=== PATIENT | male | born 1955 | race Two or more races ===

== ENCOUNTER 2024-03-01 11:10 | Emergency (ER) | payer OTHER ==
[~2024-03-01] VITALS: Ht 175.3 cm; Wt 62.1 kg
[2024-03-01] MEDS ORDERED: BENICAR20 MG PO (11:25)
[2024-03-01] MEDS ORDERED: ROSUVASTATIN CA10 MG PO (11:25)
[2024-03-01] MEDS ORDERED: FINASTERIDE5 MG PO (11:25)
[2024-03-01] MEDS ORDERED: UROXATRAL10 MG PO (11:26)
[2024-03-01] MEDS ORDERED: TETANUS & DIPHTHERIA TOX,ADULT 0.5 ML VIAL IM ONE (13:30)
[2024-03-01] MEDS ORDERED: TETANUS DIPHTHERIA TOX. ADSOR 5 ML VIAL IM ONE (13:46)
[2024-03-01] MEDS ORDERED: NEOMYCIN/BACITRACIN/POLYMYXINB 28.35 GM OINT..GM. TOP ONE (14:30)
[2024-03-01] MEDS ORDERED: POVIDONE-IODINE SCRUB 118 ML BOTT TOP ONE (14:30)
[2024-03-01] MEDS ORDERED: BACITRACIN-NEOMYCIN-POLYMYXIN 0.9 GM PACKET TOP ONE (14:40)
== END 2024-03-01 15:31 | disposition home or self-care (01) ==
LOC: ER 11:12
DX: S29.8XXA Other specified injuries of thorax, initial encounter (principal); V49.88XA Car occupant (driver) (passenger) injured in other specified transport accidents, initial encounter; Y93.89 Activity, other specified; Y92.89 Other specified places as the place of occurrence of the external cause; Y99.8 Other external cause status
CPT/HCPCS: 71111; 90471; 90714; J1670